=== PATIENT | male | born 1950 | race Caucasian/White ===

== ENCOUNTER 2017-10-04 18:10 | Observation (INO) | payer OTHER ==
[~2017-10-04] VITALS: Ht 167.6 cm; Wt 86.1 kg
[2017-10-04] MEDS ORDERED: MoRPHine SULFATE 4 MG/ML 1 ML CARP\\VIAL IV STA (18:26)
--- NOTE | 2017-10-04 18:31 | EMERGENCY ROOM VISIT NOTE ---
History Report prepared by Kimani: Rosina Cespedes Under the Supervision of: Dr. Tony Ndiaye M.D. First contact with patient: 18:18 Chief Complaint: CHEST PAIN Stated Complaint: CHEST PAIN History of Present Illness The patient is a 66 year old white male with a past medical history of CAD, HTN , and HLD who presents to the ED with a cc of chest pain beginning at around 1000 this morning. Positive dry cough. Negative fevers, chills, urinary symptoms , or history of blood clots in his legs or lungs. He describes his pain as constant and sharp in the center of his chest. The patient states that breathing in worsens his pain. His family notes that the patient began taking amoxicillin yesterday for a dental infection. His family also reports the patient has lost 20 pounds recently due to his poor dentition. He is currently taking aspirin and Plavix. He is also a current smoker. Source of History: patient, family Onset: around 1000 this morning Position: chest Quality: sharp Timing: constant Modifying Factors (Worsening): other (breathing in) Associated Symptoms: + cough (dry), No fevers, No chills, No urinary symptoms Note: Negative history of blood clots in his legs or lungs Review of Systems See HPI for pertinent positives and negatives. A total of ten systems were reviewed and were otherwise negative. Past Medical & Surgical Medical Problems: (1) CAD (coronary artery disease) (2) Chest pain (3) HLD (hyperlipidemia) (4) HTN (hypertension) (5) Hypoxia (6) Pulmonary congestion (7) Pulmonary nodule (8) Weight loss CAD (coronary artery disease) HLD (hyperlipidemia) HTN (hypertension) Family History No pertinent family history Social History Smoking Status: Current Every Day Smoker Smokeless Tobacco Use: Unknown Drug Use: none Housing Status: unknown Occupation Status: retired Current/Historical Medications Scheduled Amlodipine (Norvasc), 5 MG PO DAILY Amoxicillin (Amoxil), 875 MG PO BID Aspirin (Aspirin Ec), 325 MG PO DAILY Ezetimibe (Zetia), 10 MG PO DAILY Metoprolol Succ (Toprol Xl) (Toprol-Xl), 50 MG PO QPM Omeprazole (Prilosec), 20 MG PO DAILY Rosuvastatin Calcium (Crestor), 20 MG PO DAILY Allergies Coded Allergies: No Known Allergies (Unverified , 10/04/17) Physical Exam Vital Signs Date Time Temp Pulse Resp B/P (MAP) Pulse Ox O2 Delivery O2 Flow Rate FiO2 10/04/17 21:31 89 24 124/82 94 Nasal Cannula 2.0 10/04/17 20:22 75 23 110/70 96 Nasal Cannula 2.0 10/04/17 19:00 82 26 111/72 91 Nasal Cannula 2.0 10/04/17 18:42 89 20 139/84 93 Room Air 10/04/17 18:37 93 10/04/17 18:32 88 10/04/17 18:23 93 Room Air 10/04/17 18:16 36.7 88 18 131/76 96 Room Air Physical Exam GENERAL: Awake, alert, well-appearing, NAD. Appears older than stated age. Wearing glasses. HENT: Normocephalic, atraumatic. EYES: Normal conjunctiva. Sclera non-icteric. PERRL. No anisocoria. NECK: Supple. No nuchal rigidity. FROM. RESPIRATORY: CTAB, no rhonchi, wheezing, crackles. Shallow breaths. CARDIAC: RRR, no MRG ABDOMEN: Soft, NTND, BS+ MSK: No chest wall TTP, no LE edema. No reproducible chest pain. NEURO: GCS 15, CN 2-12 intact, moves all 4s on command SKIN: No rash or jaundice noted. Medical Decision & Procedures ER Provider Diagnostic Interpretation: Radiology results as stated below per my review and radiologist interpretation: CHEST ONE VIEW PORTABLE HISTORY: Atypical CHEST PAIN COMPARISON: None. FINDINGS: The heart is mildly enlarged. There is interstitial and vascular thickening suggestive of mild congestive change. No pleural effusions. No pneumothorax. No focal lung consolidations to suggest pneumonia. There is a vascular stent adjacent to the aortic knob. IMPRESSION: Cardiomegaly with mild congestive change. Electronically signed by: Sudheer Thomas M.D. 10/04/2017 7:39 PM Dictated Date/Time: 10/04/2017 7:37 PM CHEST CTA for PULMONARY ARTERIES CT DOSE: 474.64 mGy.cm HISTORY: Short of breath. Atypical chest pain. TECHNIQUE: Multiaxial CT images of the chest were performed following the intravenous administration of contrast to evaluate the pulmonary arteries. Maximal intensity projection images were also obtained. A dose lowering technique was utilized adhering to the principles of ALARA. COMPARISON STUDY: None. FINDINGS: Normal caliber thoracic aorta with no evidence for dissection. Proximal left subclavian artery stent is patent. No pleural or pericardial effusions. The heart is borderline enlarged. Question of a single linear filling defects seen within a right upper lobe segmental pulmonary artery on image 161. This could represent a small pulmonary embolus or may be technical. The remaining pulmonary arteries show no suspicious filling defects. The visualized liver, spleen, and adrenal glands are unremarkable. A few prominent right paratracheal lymph nodes with the largest measuring 1 cm in short axis diameter. No hilar lymphadenopathy. No fractures within the visualized osseous structures. No pneumothorax. The central airways are patent. Groundglass densities at the lung bases posteriorly are nonspecific but may be due to mild dependent change. Mild to moderate emphysema most pronounced within the right upper lobe. There is a 5 mm indeterminate pulmonary nodule within the superior segment of the right lower lobe in image 126. Punctate calcified granuloma within the right upper lobe on image 140. IMPRESSION: 1. A single linear filling defect seen within a right upper lobe segmental pulmonary artery. This could represent a small pulmonary embolus or may be technical. The remaining pulmonary arteries are patent. 2. Mild/moderate emphysema. 3. Groundglass densities at the lung bases posteriorly. This could be due to mild dependent change or possibly developing pneumonia. 4. A 5 mm indeterminate pulmonary nodule right lower lobe. Please refer to the chart below for recommended follow-up. Please refer to below summary of Fleischner criteria recommendations for follow-up of incidental CT nodules (Ann-Marie Mccartney, Guidelines for management of small pulmonary nodules detected on CT scans: A statement from the Fleischner Society, Radiology 237: [phone].) SOLID NODULES Solitary nodule size: <6 mm * Low risk patients: no follow-up needed * high risk patients: optional CT at 12 months Solitary nodule size: 6-8 mm * Low risk patients: follow-up at 6-12 months, then consider further follow-up at 18-24 months * high risk patients: initial follow-up CT at 6-12 months and then at 18-24 months if no change Solitary nodule size: >8 mm * either low or high risk patients - consider follow-up CT at 3 months, and/or CT-PET, and/or biopsy Multiple nodules size: <6 mm * Low risk patients: no routine follow-up * high risk patients: optional CT at 12 months Multiple nodules size: 6-8 mm * Low risk patients: follow-up at 3-6 months, then consider further follow-up at 18-24 months * high risk patients: follow-up at 3-6 months, then at 18-24 months if no change Multiple nodules size: >8 mm * Low risk patients: follow-up at 3-6 months, then consider further follow-up at 18-24 months * high risk patients: follow-up at 3-6 months, then at 18-24 months if no change Note: newly detected indeterminate nodule in persons 35 years of age or older. * Low risk patients: minimal or absent history of smoking and/or other known risk factors * high risk patients: history of smoking or of other known risk factors (e.g. first degree relative with lung cancer, or exposure to asbestos, radon, uranium) * if a nodule up to 8 mm is partly solid or is ground glass further follow-up is required after 24 months to exclude possible slow growing adenocarcinoma (MEG) SUBSOLID NODULES Solitary pure ground-glass nodule * nodule size <6 mm - no CT follow-up required * nodule size >=6 mm - follow-up CT at 6-12 months, then every 2 years until 5 years Solitary part-solid nodule * nodule size <6 mm - no CT follow-up required * nodule size >=6 mm - follow-up CT at 3-6 months. If unchanged, and solid component remains <6 mm, then annual follow-up for 5 years Multiple subsolid nodules * nodule size <6 mm - follow-up CT at 3-6 months, consider further follow-up at 2 and 4 years if stable * nodule size >=6 mm - follow-up CT at 3-6 months, subsequent management based on the most suspicious nodule(s) Electronically signed by: Sudheer Thomas M.D. 10/04/2017 8:07 PM Dictated Date/Time: 10/04/2017 7:55 PM Laboratory Results 10/04/17 18:30 Red Blood Count 5.51, Mean Corpuscular Volume 91.5, Mean Corpuscular Hemoglobin 34.3, Mean Corpuscular Hemoglobin Concent 37.5, Mean Platelet Volume 9.5, Neutrophils (%) (Auto) 78.2, Lymphocytes (%) (Auto) 10.0, Monocytes (%) (Auto) 9.4, Eosinophils (%) (Auto) 1.7, Basophils (%) (Auto) 0.4, Neutrophils # (Auto) 11.75, Lymphocytes # (Auto) 1.51, Monocytes # (Auto) 1.42, Eosinophils # (Auto) 0.25, Basophils # (Auto) 0.06 10/04/17 18:30 Test 10/04/17 18:30 10/04/17 18:38 10/04/17 18:42 White Blood Count 15.03 K/uL (4.8-10.8) Red Blood Count 5.51 M/uL (4.7-6.1) Hemoglobin 18.9 g/dL (14.0-18.0) Hematocrit 50.4 % (42-52) Mean Corpuscular Volume 91.5 fL (80-100) Mean Corpuscular Hemoglobin 34.3 pg (25-34) Mean Corpuscular Hemoglobin Concent 37.5 g/dl (32-36) Platelet Count 162 K/uL (130-400) Mean Platelet Volume 9.5 fL (7.4-10.4) Neutrophils (%) (Auto) 78.2 % Lymphocytes (%) (Auto) 10.0 % Monocytes (%) (Auto) 9.4 % Eosinophils (%) (Auto) 1.7 % Basophils (%) (Auto) 0.4 % Neutrophils # (Auto) 11.75 K/uL (1.4-6.5) Lymphocytes # (Auto) 1.51 K/uL (1.2-3.4) Monocytes # (Auto) 1.42 K/uL (0.11-0.59) Eosinophils # (Auto) 0.25 K/uL (0-0.5) Basophils # (Auto) 0.06 K/uL (0-0.2) RDW Standard Deviation 44.5 fL (36.4-46.3) RDW Coefficient of Variation 13.3 % (11.5-14.5) Immature Granulocyte % (Auto) 0.3 % Immature Granulocyte # (Auto) 0.04 K/uL (0.00-0.02) Prothrombin Time 10.5 SECONDS (9.0-12.0) Prothromb Time International Ratio 1.0 (0.9-1.1) Activated Partial Thromboplast Time 28.6 SECONDS (21.0-31.0) Partial Thromboplastin Ratio 1.1 Est Creatinine Clear Calc Drug Dose 63.8 ml/min Estimated GFR () 75.4 Estimated GFR (Non- 65.0 BUN/Creatinine Ratio 13.7 (10-20) Calcium Level 9.3 mg/dl (8.5-10.1) Phosphorus Level 2.8 mg/dl (2.5-4.9) Magnesium Level 2.1 mg/dl (1.8-2.4) Pro-B-Type Natriuretic Peptide 249 pg/ml (0-900) Procalcitonin < 0.05 ng/ml (0-0.5) Bedside Troponin I < 0.030 ng/ml (0-0.045) Bedside Hemoglobin 18.7 g/dl (14.0-18.0) Bedside Hematocrit 55 % (42-52) Bedside Sodium 137 mEq/L (135-144) Bedside Potassium 4.1 mEq/L (3.3-5.0) Bedside Chloride 99 mEq/L (101-112) Bedside Total CO2 26 mEq/l (24-31) Anion Gap 17.0 mmol/L (16-25) Bedside Blood Urea Nitrogen 18 mg/dl (7-18) Bedside Creatinine 1.1 mg/dl (0.6-1.3) Bedside Glucose (other) 107 mg/dl (70-99) Bedside Ionized Calcium (Joshua) 1.20 mmol/l (1.12-1.32) Laboratory results reviewed by me Medications Administered Medications (Trade) Dose Ordered Sig/Anay Route Start Time Stop Time Status Last Admin Dose Admin Nitroglycerin (Nitrostat Tab) 0.4 mg Q5M PRN SL 10/04/17 18:30 10/04/17 22:50 DC 10/04/17 22:19 0.4 MG Morphine Sulfate (MoRPHine SULFATE INJ) 4 mg NOW STAT IV 10/04/17 18:26 10/04/17 18:29 DC 10/04/17 18:43 4 MG Ceftriaxone Sodium (Rocephin Inj) 1 gm NOW STAT IV 10/04/17 20:11 10/04/17 20:13 DC 10/04/17 20:20 1 GM Azithromycin (Zithromax Tab) 500 mg NOW ONCE PO 10/04/17 20:15 10/04/17 20:16 DC 10/04/17 20:19 500 MG Morphine Sulfate (MoRPHine SULFATE INJ) 2 mg Q30M PRN IV 10/04/17 21:45 10/05/17 00:58 DC 10/05/17 00:04 2 MG ECG Per My Interpretation Indication: chest pain Rate (beats per minute): 86 Rhythm: normal sinus Findings: other (normal intervals, normal axis, prominent T waves V2 through V6 , subtle elevations in II and AVF ) Change: Repeat EKG shows normal sinus, rate of 84, normal intervals, normal axis, pronounced T waves V2 through V6, subtle elevations may be improved ED Course 1819: The patient was evaluated in room B2. A complete history and physical exam was performed. 1825: Ordered Morphine Sulfate 4 mg IV 1829: Ordered Nitroglycerin 0.4 mg SL 183: I discussed the patients case with Dr. Hakeem Britton, Cardiology. I discussed the patients case with Dr. Hakeem Britton, Cardiology. His recommendation was to text the EKG to him at this time. 1840: I discussed the patient's case again with Dr. Hakeem Britton, Cardiology. He agrees there may be some subtle changes. He wants to wait for troponin. If troponin is positive and the patient is not pain free after medications, a heart alert should be called. 0: I tried to ultrasound the patient at this time. His chest pain has not improved. 2011: Ordered Rocephin Inj 1 gm IV 2013: I reevaluated the patient. Discussed results and and the treatment plan with him. He verbalized understanding and agreement. 2015: Ordered Zithromax Tab 500 mg PO 2019: Discussed the patient's case with Renny Nassar, [facility] Hospitalist. The patient will be evaluated for further treatment and disposition. Medical Decision The patient is a 66 year old white male with a past medical history of CAD, HTN , and HLD who presents to the ED with a cc of chest pain beginning at around 1000 this morning. Positive dry cough. Negative fevers, chills, urinary symptoms , or history of blood clots in his legs or lungs. Prior records/ancillary studies reviewed. Triage Nursing notes reviewed. Additional history obtained from the patient's family. The patient's history was concerning for chest pain. Differential diagnosis: Etiologies such as cardiac ischemia, aortic dissection, pulmonary embolism, pneumonia, pneumothorax, musculoskeletal, infections, pericarditis, myocarditis , esophageal rupture, gastrointestinal, as well as others were entertained. Patient was seen and evaluated the bedside. Patient does have a significant history for known CAD status post PCI and PVD status post stent in the leg. Patient does take full dose aspirin as well as Plavix daily. Patient noted chest pain beginning around 10 AM this morning. Patient denies any shortness of breath. He characterizes it as sharp and nonradiating. The patient has had an unintentional weight loss of approximately 20 pounds over the last several months. This is been due to his poor dentition and decreased p.o. intake. Patient is a positive smoker and does have hypertension and hyperlipidemia. Patient did have an EKG completed the bedside. Unsure as to whether he has benign early re-pole versus hyperacute T waves in his anterior and lateral leads. He does have questionable subtle elevations in 2 and aVF. I did speak with the on-call table top tile setter who agreed that the changes are subtle and cannot rule it in or out at this time. Recommended following up on the troponin which was running and seeing if the patient has improvement of chest pain with medications. If the troponin is positive for the patient is not chest pain-free we should call a heart alert. Upon reassessment the patient admittedly was not feeling all that improved over the patient's troponin was negative and given the patient's shortness of breath along with sharp pleuritic chest pain I thought it gomez to obtain a CT PE protocol. Patient's white blood cell count was 15,000. This could be due to the fact that he was being treated for dental infection or could be reimbursement representative of a possible chest infection. Patient's repeat EKG was fairly unchanged. Patient CT p.o. E protocol showed a questionable PE versus atelectasis versus pneumonia. Given the patient's elevated white blood cell count mild hypoxia as his O2 saturation was in the low 90s I believe this may be related to a pneumonia. The patient was given Rocephin and azithromycin. Patient's symptoms could also be multifactorial as the patient does have emphysematous changes on his CT which may contribute to his relative hypoxia. I did discuss all of the potential findings and concerns with the hospitalist. Patient did already take a full aspirin prior to arrival. Admitted to the medicine service. Medication Reconcilliation Current Medication List: was personally reviewed by me Blood Pressure Screening Patient's blood pressure: Normal blood pressure Blood pressure disposition: Did not require urgent referral Consults Time Called: 1830 Consulting Physician: Dr. Hakeem Britton, Cardiology Returned Call: 1833 I discussed the patients case with Dr. Hakeem Britton, Cardiology. His recommendation was to text the EKG to him at this time. Additional Consults: Time Called: 1834 Consulted Physician: Dr. Hakeem Britton, Cardiology Returned Call: 1840 Additional Comments: I discussed the patient's case again with Dr. Hakeem Britton Cardiology. He agrees there may be some subtle changes. He wants to wait for troponin. If troponin is positive and the patient is not pain free after medications, a heart alert should be called. Time Called: 2012 Consulted Physician: Renny Nassar, [facility] Hospitalist Returned Call: 2018 Additional Comments: Discussed the patient's case with Renny Nassar, [facility] Hospitalist. The patient will be evaluated for further treatment and disposition. Impression Primary Impression: Pneumonia Additional Impressions: Encounter for smoking cessation counseling COPD (chronic obstructive pulmonary disease) Chest pain Scribe Attestation The scribe's documentation has been prepared under my direction and personally reviewed by me in its entirety. I confirm that the note above accurately reflects all work, treatment, procedures, and medical decision making performed by me. Departure Information Dispostion Being Evaluated By Hospitalist (Renny Nassar, [facility] Hospitalist) Referrals No Doctor, Assigned (PCP) Patient Instructions [facility] Problem Qualifiers Primary Impression: Pneumonia Pneumonia type: due to unspecified organism Laterality: unspecified laterality Lung location: unspecified part of lung Qualified Codes: J18.9 - Pneumonia, unspecified organism Additional Impressions: COPD (chronic obstructive pulmonary disease) COPD type: emphysema Emphysema type: unspecified Qualified Codes: J43.9 - Emphysema, unspecified Chest pain Chest pain type: unspecified Qualified Codes: R07.9 - Chest pain, unspecified
[2017-10-04] MEDS: NITROGLYCERIN 0.4 MG SL PER TAB CHARGE SL PRN ×3 (18:43→22:19)
[2017-10-04 18:48] LABS: BASO % 0.4 %; BASO ABS # 0.06 K/uL (0-0.2); EOS % 1.7 %; EOS ABS # 0.25 K/uL (0-0.5); HEMATOCRIT 50.4 % (42-52); HEMOGLOBIN 18.9 g/dL (14.0-18.0); IG# 0.04 K/uL (0.00-0.02); LYMPH ABS # 1.51 K/uL (1.2-3.4); MEAN CELL VOLUME 91.5 fL (80-100); MEAN CORPUSCULAR HEMOGLOBIN 34.3 pg (25-34); MEAN CORPUSCULAR HGB CONC 37.5 g/dl (32-36); MEAN PLATELET VOLUME 9.5 fL (7.4-10.4); MONO % 9.4 %; MONO ABS # 1.42 K/uL (0.11-0.59); NEUT % 78.2 %; NEUT ABS # 11.75 K/uL (1.4-6.5); PLATELET COUNT 162 K/uL (130-400); RED CELL DISTRIBUTION WIDTH CV 13.3 % (11.5-14.5); RED CELL DISTRIBUTION WIDTH SD 44.5 fL (36.4-46.3); WHITE BLOOD COUNT 15.03 K/uL (4.8-10.8)
[2017-10-04 19:00] LABS: ISTAT CREATININE 1.1 mg/dl (0.6-1.3); ISTAT IONIZED CALCIUM 1.2 mmol/l (1.12-1.32); ISTAT POTASSIUM 4.1 mEq/L (3.3-5.0)
[2017-10-04 19:02] LABS: BLOOD UREA NITROGEN 16 mg/dl (7-18); CALCIUM 9.3 mg/dl (8.5-10.1); CARBON DIOXIDE 28 mmol/L (21-32); CREATININE 1.15 mg/dl (0.60-1.40); GLUCOSE 103 mg/dl (70-99); POTASSIUM 4.1 mmol/L (3.5-5.1); SODIUM 135 mmol/L (136-145)
[2017-10-04 19:04] LABS: PTT PATIENT 28.6 SECONDS (21.0-31.0)
[2017-10-04 19:07] LABS: PHOSPHORUS 2.8 mg/dl (2.5-4.9)
[2017-10-04] MEDS ORDERED: OPTIRAY 320 IV PRN (19:30)
[2017-10-04] MEDS ORDERED: AMOX875T3 PO (19:33)
[2017-10-04] MEDS ORDERED: ROSU20TA PO (19:33)
[2017-10-04] MEDS ORDERED: PRLSR20 PO (19:33)
[2017-10-04] MEDS ORDERED: ASPI325T39 PO (19:33)
[2017-10-04] MEDS ORDERED: METO50TA8 PO (19:33)
[2017-10-04] MEDS ORDERED: EZET10TA63 PO (19:33)
[2017-10-04] MEDS ORDERED: AMLO-110 PO (19:33)
--- NOTE | 2017-10-04 19:40 | DIAGNOSTIC IMAGING REPORT ---
CHEST ONE VIEW PORTABLE HISTORY: Atypical CHEST PAIN COMPARISON: None. FINDINGS: The heart is mildly enlarged. There is interstitial and vascular thickening suggestive of mild congestive change. No pleural effusions. No pneumothorax. No focal lung consolidations to suggest pneumonia. There is a vascular stent adjacent to the aortic knob. IMPRESSION: Cardiomegaly with mild congestive change. Electronically signed by: Sudheer Thomas M.D. 10/04/2017 7:39 PM Dictated Date/Time: 10/04/2017 7:37 PM
--- NOTE | 2017-10-04 20:08 | DIAGNOSTIC IMAGING REPORT ---
CHEST CTA for PULMONARY ARTERIES CT DOSE: 474.64 mGy.cm HISTORY: Short of breath. Atypical chest pain. TECHNIQUE: Multiaxial CT images of the chest were performed following the intravenous administration of contrast to evaluate the pulmonary arteries. Maximal intensity projection images were also obtained. A dose lowering technique was utilized adhering to the principles of ALARA. COMPARISON STUDY: None. FINDINGS: Normal caliber thoracic aorta with no evidence for dissection. Proximal left subclavian artery stent is patent. No pleural or pericardial effusions. The heart is borderline enlarged. Question of a single linear filling defects seen within a right upper lobe segmental pulmonary artery on image 161. This could represent a small pulmonary embolus or may be technical. The remaining pulmonary arteries show no suspicious filling defects. The visualized liver, spleen, and adrenal glands are unremarkable. A few prominent right paratracheal lymph nodes with the largest measuring 1 cm in short axis diameter. No hilar lymphadenopathy. No fractures within the visualized osseous structures. No pneumothorax. The central airways are patent. Groundglass densities at the lung bases posteriorly are nonspecific but may be due to mild dependent change. Mild to moderate emphysema most pronounced within the right upper lobe. There is a 5 mm indeterminate pulmonary nodule within the superior segment of the right lower lobe in image 126. Punctate calcified granuloma within the right upper lobe on image 140. IMPRESSION: 1. A single linear filling defect seen within a right upper lobe segmental pulmonary artery. This could represent a small pulmonary embolus or may be technical. The remaining pulmonary arteries are patent. 2. Mild/moderate emphysema. 3. Groundglass densities at the lung bases posteriorly. This could be due to mild dependent change or possibly developing pneumonia. 4. A 5 mm indeterminate pulmonary nodule right lower lobe. Please refer to the chart below for recommended follow-up. Please refer to below summary of Fleischner criteria recommendations for follow-up of incidental CT nodules (Ann-Marie Mccartney, Guidelines for management of small pulmonary nodules detected on CT scans: A statement from the Fleischner Society, Radiology 237: [phone].) SOLID NODULES Solitary nodule size: <6 mm * Low risk patients: no follow-up needed * high risk patients: optional CT at 12 months Solitary nodule size: 6-8 mm * Low risk patients: follow-up at 6-12 months, then consider further follow-up at 18-24 months * high risk patients: initial follow-up CT at 6-12 months and then at 18-24 months if no change Solitary nodule size: >8 mm * either low or high risk patients - consider follow-up CT at 3 months, and/or CT-PET, and/or biopsy Multiple nodules size: <6 mm * Low risk patients: no routine follow-up * high risk patients: optional CT at 12 months Multiple nodules size: 6-8 mm * Low risk patients: follow-up at 3-6 months, then consider further follow-up at 18-24 months * high risk patients: follow-up at 3-6 months, then at 18-24 months if no change Multiple nodules size: >8 mm * Low risk patients: follow-up at 3-6 months, then consider further follow-up at 18-24 months * high risk patients: follow-up at 3-6 months, then at 18-24 months if no change Note: newly detected indeterminate nodule in persons 35 years of age or older. * Low risk patients: minimal or absent history of smoking and/or other known risk factors * high risk patients: history of smoking or of other known risk factors (e.g. first degree relative with lung cancer, or exposure to asbestos, radon, uranium) * if a nodule up to 8 mm is partly solid or is ground glass further follow-up is required after 24 months to exclude possible slow growing adenocarcinoma (MEG) SUBSOLID NODULES Solitary pure ground-glass nodule * nodule size <6 mm - no CT follow-up required * nodule size >=6 mm - follow-up CT at 6-12 months, then every 2 years until 5 years Solitary part-solid nodule * nodule size <6 mm - no CT follow-up required * nodule size >=6 mm - follow-up CT at 3-6 months. If unchanged, and solid component remains <6 mm, then annual follow-up for 5 years Multiple subsolid nodules * nodule size <6 mm - follow-up CT at 3-6 months, consider further follow-up at 2 and 4 years if stable * nodule size >=6 mm - follow-up CT at 3-6 months, subsequent management based on the most suspicious nodule(s) Electronically signed by: Sudheer Thomas M.D. 10/04/2017 8:07 PM Dictated Date/Time: 10/04/2017 7:55 PM
[2017-10-04] MEDS ORDERED: CEFTRIAXONE SOD INJ 1 GM ADDVIAL IV STA (20:11)
[2017-10-04] MEDS ORDERED: AZITHROMYCIN 250 MG TAB PO ONE (20:15)
[2017-10-04] MEDS ORDERED: NITROGLYCERIN 0.4 MG SL PER TAB CHARGE SL PRN (21:45)
[2017-10-04] MEDS ORDERED: ALUMINUM/MAGNESIUM/SIMETH (MAALOX MAX) 30 ML UDC PO PRN (21:45)
[2017-10-04] MEDS ORDERED: ONDANSETRON INJ 2 MG/ML 2 ML VIAL IV PRN (21:45)
[2017-10-04] MEDS ORDERED: MAGNESIUM HYDROXIDE SUSP 30 ML UDC PO PRN (21:45)
[2017-10-04] MEDS ORDERED: ACETAMINOPHEN 325 MG TAB PO PRN (21:45)
--- NOTE | 2017-10-04 22:07 | History and Physical ---
History & Physical Date & Time of Service: October 04, 2017 at 21:40 Chief Complaint: Chest Pain Primary Care Physician: No Doctor, Assigned History of Present Illness Source: patient, family 66 year old male with PMHx significant for significant CAD s/p PCI, PVD s/p left femoral stent, h/o left subclavian stenosis s/p stent, HTN, HLD, chronic ongoing tobacco abuse with 100 pack year history presents to the ER with acute onset CP described as a sharp pain across his chest bilaterally with radiation to the centre of his back, but not the neck/jaw/arm. Associated with pleurisy, but no nausea or diaphoresis. Symptoms occurred while working in the garage, although he denies significant exertion or heavy lifting. Chest symptoms dulled and subsided but have continued to recur through the day. As the day progressed , patient has felt increasingly dyspneic, so family brought him in for evaluation. Patient ambulates independently at baseline and denies changes in exercise tolerance or difficulty ambulating up a flight of stairs. He has had left jaw pain x 1 week, and recently saw his PCP in [place] yesterday who prescribed amoxicillin 875mg BID for dental abscess and a recommendation for patient to make a dental appointment. Patient has taken 3 doses of medication to date and denies fevers/chills/sweats. He is aware he has poor dentition, and should have seen a dentist sooner. Because of his tooth pain, patient has poor PO intake, but actually, family informs us that patient has had a 20lb weight loss over the last 6 months, without trying. Patient denies recent procedure/ immobility, recent travel, or chest trauma. He has had CT chest in the past, but denies annual screening low dose CT. Family was never told about any lung nodules in the past. He has never had a screening colonoscopy, having declined/' avoided' them. He has had spirometry testing in the past, but was never diagnosed as COPD. His PCP had prescribed an inhaler in the past, but the patient was non-compliant as it worsened his cough. Patient denies recent use of antibiotics/steroids for lung issues, stating he sees his PCP annually (ie. rarely), last seen 6 months ago. He has a die barber who does scheduled echo/ carotid Doppler/ALLI measurements, per patient, and no recent intervention has been required. Patient otherwise denies headaches, palpitations, abdominal pain or nausea/ vomiting, lower extremity swelling, rashes issues with voiding or stooling. ROS is unremarkable except as noted above. In the ER, EKG showed subtle changes but no heart alert was called after discussion with die barber Dr. Britton. Patient received morphine, NGT, Rocephin and Zithromax. Imaging ruled out dissection, but did show right upper lobe segmental artery PE, emphysema, pulmonary nodule and ?pneumonia. Recurrent chest pain was treated with morphine and NGT. Repeat EKG was unchanged. Past Medical/Surgical History Medical Problems: (1) CAD (coronary artery disease) (2) HLD (hyperlipidemia) (3) HTN (hypertension) Family History No pertinent family history Non-contributory Social History Smoking Status: Current Every Day Smoker Smokeless Tobacco Use: No Alcohol Use: occasionally Drug Use: none Marital Status: Housing status: lives with family Occupational Status: retired Immunizations History of Influenza Vaccine: Unknown History of Tetanus Vaccine?: Unknown History of Pneumococcal: Unknown History of Hepatitis B Vaccine: Unknown Allergies Coded Allergies: No Known Allergies (Unverified , 10/04/17) Home Medications Scheduled Amlodipine (Norvasc), 5 MG PO DAILY Amoxicillin (Amoxil), 875 MG PO BID Aspirin (Aspirin Ec), 325 MG PO DAILY Ezetimibe (Zetia), 10 MG PO DAILY Metoprolol Succ (Toprol Xl) (Toprol-Xl), 50 MG PO QPM Omeprazole (Prilosec), 20 MG PO DAILY Rosuvastatin Calcium (Crestor), 20 MG PO DAILY Physical Exam Vital Signs Date Time Temp Pulse Resp B/P (MAP) Pulse Ox O2 Delivery O2 Flow Rate FiO2 10/04/17 20:22 75 23 110/70 96 Nasal Cannula 2.0 10/04/17 19:00 82 26 111/72 91 Nasal Cannula 2.0 10/04/17 18:42 89 20 139/84 93 Room Air 10/04/17 18:37 93 10/04/17 18:32 88 10/04/17 18:23 93 Room Air 10/04/17 18:16 36.7 88 18 131/76 96 Room Air General Appearance: WD/WN, + pertinent finding (nasal cannula in situ with supplemental 2L O2) Head: normocephalic, atraumatic Eyes: normal inspection, sclerae normal ENT: hearing grossly normal, pharynx normal, + pertinent finding (vertical ear creases, poor dentition, tacky mucous membranes) Neck: supple, no adenopathy, no JVD Respiratory/Chest: no respiratory distress, no accessory muscle use, + decreased breath sounds, + crackles (bibasilar), + wheezing (appreciated anteriorly) Cardiovascular: regular rate, rhythm, normal peripheral pulses Abdomen/GI: normal bowel sounds, non tender, soft Back: normal inspection, no CVA tenderness Extremities/Musculoskelatal: no calf tenderness, no pedal edema, + pertinent finding (Digital clubbing) Neurologic/Psych: alert, normal mood/affect, oriented x 3 Skin: warm/dry, no rash, + pertinent finding (Evidence of hemosiderin deposits across both arms. Bruising attributed to bumps while on dual anti-platelets, dermatofibroma on left upper back. Large mole hanging off back of right ear.) Diagnostics Laboratory Results Results Past 24 Hours Test 10/04/17 18:30 10/04/17 18:38 10/04/17 18:42 Range/Units White Blood Count 15.03 4.8-10.8 K/uL Red Blood Count 5.51 4.7-6.1 M/uL Hemoglobin 18.9 14.0-18.0 g/dL Hematocrit 50.4 42-52 % Mean Corpuscular Volume 91.5 80-100 fL Mean Corpuscular Hemoglobin 34.3 25-34 pg Mean Corpuscular Hemoglobin Concent 37.5 32-36 g/dl Platelet Count 162 130-400 K/uL Mean Platelet Volume 9.5 7.4-10.4 fL Neutrophils (%) (Auto) 78.2 % Lymphocytes (%) (Auto) 10.0 % Monocytes (%) (Auto) 9.4 % Eosinophils (%) (Auto) 1.7 % Basophils (%) (Auto) 0.4 % Neutrophils # (Auto) 11.75 1.4-6.5 K/uL Lymphocytes # (Auto) 1.51 1.2-3.4 K/uL Monocytes # (Auto) 1.42 0.11-0.59 K/uL Eosinophils # (Auto) 0.25 0-0.5 K/uL Basophils # (Auto) 0.06 0-0.2 K/uL RDW Standard Deviation 44.5 36.4-46.3 fL RDW Coefficient of Variation 13.3 11.5-14.5 % Immature Granulocyte % (Auto) 0.3 % Immature Granulocyte # (Auto) 0.04 0.00-0.02 K/uL Prothrombin Time 10.5 9.0-12.0 SECONDS Prothromb Time International Ratio 1.0 0.9-1.1 Activated Partial Thromboplast Time 28.6 21.0-31.0 SECONDS Partial Thromboplastin Ratio 1.1 Sodium Level 135 136-145 mmol/L Potassium Level 4.1 3.5-5.1 mmol/L Chloride Level 101 98-107 mmol/L Carbon Dioxide Level 28 21-32 mmol/L Anion Gap 6.0 17.0 16-25 mmol/L Blood Urea Nitrogen 16 7-18 mg/dl Creatinine 1.15 0.60-1.40 mg/dl Est Creatinine Clear Calc Drug Dose 63.8 ml/min Estimated GFR () 75.4 Estimated GFR (Non- 65.0 BUN/Creatinine Ratio 13.7 10-20 Random Glucose 103 70-99 mg/dl Calcium Level 9.3 8.5-10.1 mg/dl Phosphorus Level 2.8 2.5-4.9 mg/dl Magnesium Level 2.1 1.8-2.4 mg/dl Troponin I < 0.015 0-0.045 ng/ml Pro-B-Type Natriuretic Peptide 249 0-900 pg/ml Bedside Troponin I < 0.030 0-0.045 ng/ml Bedside Hemoglobin 18.7 14.0-18.0 g/dl Bedside Hematocrit 55 42-52 % Bedside Sodium 137 135-144 mEq/L Bedside Potassium 4.1 3.3-5.0 mEq/L Bedside Chloride 99 101-112 mEq/L Bedside Total CO2 26 24-31 mEq/l Bedside Blood Urea Nitrogen 18 7-18 mg/dl Bedside Creatinine 1.1 0.6-1.3 mg/dl Bedside Glucose (other) 107 70-99 mg/dl Bedside Ionized Calcium (Joshua) 1.20 1.12-1.32 mmol/l Diagnostic Radiology CHEST ONE VIEW PORTABLE HISTORY: Atypical CHEST PAIN COMPARISON: None. FINDINGS: The heart is mildly enlarged. There is interstitial and vascular thickening suggestive of mild congestive change. No pleural effusions. No pneumothorax. No focal lung consolidations to suggest pneumonia. There is a vascular stent adjacent to the aortic knob. IMPRESSION: Cardiomegaly with mild congestive change. CHEST CTA for PULMONARY ARTERIES CT DOSE: 474.64 mGy.cm HISTORY: Short of breath. Atypical chest pain. TECHNIQUE: Multiaxial CT images of the chest were performed following the intravenous administration of contrast to evaluate the pulmonary arteries. Maximal intensity projection images were also obtained. A dose lowering technique was utilized adhering to the principles of ALARA. COMPARISON STUDY: None. FINDINGS: Normal caliber thoracic aorta with no evidence for dissection. Proximal left subclavian artery stent is patent. No pleural or pericardial effusions. The heart is borderline enlarged. Question of a single linear filling defects seen within a right upper lobe segmental pulmonary artery on image 161. This could represent a small pulmonary embolus or may be technical. The remaining pulmonary arteries show no suspicious filling defects. The visualized liver, spleen, and adrenal glands are unremarkable. A few prominent right paratracheal lymph nodes with the largest measuring 1 cm in short axis diameter. No hilar lymphadenopathy. No fractures within the visualized osseous structures. No pneumothorax. The central airways are patent. Groundglass densities at the lung bases posteriorly are nonspecific but may be due to mild dependent change. Mild to moderate emphysema most pronounced within the right upper lobe. There is a 5 mm indeterminate pulmonary nodule within the superior segment of the right lower lobe in image 126. Punctate calcified granuloma within the right upper lobe on image 140. IMPRESSION: 1. A single linear filling defect seen within a right upper lobe segmental pulmonary artery. This could represent a small pulmonary embolus or may be technical. The remaining pulmonary arteries are patent. 2. Mild/moderate emphysema. 3. Groundglass densities at the lung bases posteriorly. This could be due to mild dependent change or possibly developing pneumonia. 4. A 5 mm indeterminate pulmonary nodule right lower lobe. Please refer to the chart below for recommended follow-up. Impression Assessment and Plan 66 year old male with PMHx significant for significant CAD s/p PCI, PVD s/p left femoral stent, h/o left subclavian stenosis s/p stent, HTN, HLD, chronic ongoing tobacco abuse with 100 pack year history presents to the ER with acute onset CP with hypoxia, pleurisy and history of weight loss. In the ER, EKG showed subtle changes but no heart alert was called after discussion with die barber Dr. Britton. Patient received morphine, NGT, Rocephin and Zithromax. Imaging ruled out dissection, but did show right upper lobe segmental artery PE , emphysema, pulmonary nodule and ?pneumonia. Recurrent chest pain was treated with morphine and NGT. Repeat EKG was unchanged. Chest pain on bkgd CAD/PVD/HTN/HLD - CT chest negative for dissection, pleural or pericardial effusions. - Continue home meds: aspirin 325mg daily, clopidogrel, metoprolol, amlodipine, ezetimibe, rosuvastatin - Scheduled ibuprofen for pleurisy - Cardiology consulted - Trend serial troponin, check HbA1c and fasting lipids in AM - Echo ordered - PRN NGT and morphine for chest pain - EKG PRN chest pain Acute hypoxic respiratory failure - secondary to pneumonia vs. PE vs. congestion - Supplemental O2 via protocol, keep sats >92% - not on home O2 - Treat underlying cause, see below - PT/OT evals ordered Pulmonary embolism - risk factors: vasculopath, ?malignancy (see below) - CT chest: A single linear filling defect seen within a right upper lobe segmental pulmonary artery. This could represent a small pulmonary embolus or may be technical. The remaining pulmonary arteries are patent. - Heparin drip initiated - Doppler U/S of lower extremities ordered ?Pneumonia - CT chest: ground glass densities at the lung bases posteriorly. This could be due to mild dependent change or possibly developing pneumonia. Mild/moderate emphysema also noted. - Empiric treatment with levofloxacin - Procalcitonin ordered - Duonebs and incentive spirometry ordered ?Congestion - As noted on CXR, but not on CT chest. BNP negative. Patient appears euvolemic/ slightly dry clinically - Consider diuresis if hypoxia not improved (or worsened) despite treatment of pneumonia Pulmonary nodule - CT chest: A 5 mm indeterminate pulmonary nodule right lower lobe - Concerning factors: heavy smoker, significant acute weight loss, new PE, no annual screening, and no known history of nodule previously on old CT per family - Consider consulting cardiothoracic +/- oncology Dental infection/?abscess - On amoxicillin as out patient, will be covered by levofloxacin, as above - If pneumonia ruled out, would consider restarting Augmentin, and recommend outpatient dental appointment Polycythemia - likely secondary to chronic hypoxia from tobacco abuse causing pulmonary disease vs. dehydration - IVF bolus for dehydration - Trend CBC GERD - PO pantoprazole - Home omeprazole should be 12 hours apart from clopidogrel Tobacco abuse - encouraged cessation - Nicotine patch ordered VTE ppx - Heparin drip, as above - SCDs Code: FULL Resuscitation Status Full VTE Prophylaxis Will order VTE Prophylaxis: Yes Resident Tracking Resident Involvement: Resident Care Provided Care Provided: Adult Hospital Medicine
[2017-10-04] MEDS ORDERED: HEPARIN 25000 UNIT/500 ML D5W ONE (22:15)
[2017-10-04] MEDS ORDERED: MoRPHine SULFATE 2 MG/ML CARP ONE (22:23)
[2017-10-04] MEDS: MoRPHine SULFATE 4 MG/ML 1 ML CARP\\VIAL IV PRN (22:25)
[2017-10-04] MEDS ORDERED: HEPARIN 25,000 UNIT/500ML D5W 500 ML IV SCH (22:30)
[2017-10-04 22:40] VITALS: BP 120/71; PULSE 80; TEMP 36.9; O2SAT 97; Ht 167.6 cm; Wt 86.1 kg
[2017-10-04] MEDS ORDERED: SODIUM CHLORIDE 0.9% 500ML 500 ML IV SCH (23:00)
[2017-10-04] MEDS ORDERED: IV FLUIDS COMPLETED PRN (23:15)
[2017-10-04] MEDS: NITROGLYCERIN 2% OINTMENT 30GM TUBE EXT SCH (23:19)
[2017-10-04] MEDS ORDERED: ACETAMINOPHEN 500 MG TAB PO ONE (23:30)
[2017-10-04] MEDS ORDERED: LEVOFLOXACIN / D5W 750 MG in PREMIXED IN D5W 150 ML IV SCH (23:45)
[2017-10-05] VITALS (13 sets, daily range): BP systolic 102–104; BP diastolic 64–67; PULSE 67–86; TEMP 36.8–37; O2SAT 94–97
[2017-10-05] MEDS: MoRPHine SULFATE 4 MG/ML 1 ML CARP\\VIAL IV PRN (00:04)
[2017-10-05] MEDS ORDERED: IBUPROFEN 600 MG TAB PO ONE (00:55)
[2017-10-05 05:55] LABS: PTT PATIENT 51.2 SECONDS (21.0-31.0)
[2017-10-05 05:56] LABS: BASO % 0.7 %; BASO ABS # 0.07 K/uL (0-0.2); EOS % 2.6 %; EOS ABS # 0.25 K/uL (0-0.5); HEMATOCRIT 42.5 % (42-52); HEMOGLOBIN 15.5 g/dL (14.0-18.0); IG# 0.02 K/uL (0.00-0.02); LYMPH % 16.7 %; LYMPH ABS # 1.61 K/uL (1.2-3.4); MEAN CORPUSCULAR HEMOGLOBIN 33.2 pg (25-34); MEAN CORPUSCULAR HGB CONC 36.5 g/dl (32-36); MEAN PLATELET VOLUME 9.3 fL (7.4-10.4); MONO % 13.3 %; MONO ABS # 1.28 K/uL (0.11-0.59); NEUT % 66.5 %; NEUT ABS # 6.39 K/uL (1.4-6.5); PLATELET COUNT 142 K/uL (130-400); RED CELL DISTRIBUTION WIDTH CV 13.4 % (11.5-14.5); RED CELL DISTRIBUTION WIDTH SD 44.4 fL (36.4-46.3); WHITE BLOOD COUNT 9.62 K/uL (4.8-10.8)
[2017-10-05 06:00] LABS: ALBUMIN 2.8 gm/dl (3.4-5.0); CALCIUM 8.1 mg/dl (8.5-10.1); CREATININE 0.98 mg/dl (0.60-1.40); POTASSIUM 3.8 mmol/L (3.5-5.1)
[2017-10-05] MEDS ORDERED: ACETAMINOPHEN 500 MG TAB PO SCH (06:00)
[2017-10-05] MEDS: NITROGLYCERIN 2% OINTMENT 30GM TUBE EXT SCH ×2 (06:00→12:00)
[2017-10-05 06:03] LABS: TOTAL PROTEIN 6.2 gm/dl (6.4-8.2)
[2017-10-05 06:34] LABS: HEMOGLOBIN A1C 5.6 % (4.5-5.6)
[2017-10-05] MEDS: ALBUT/IPRATROP 3MG/0.5MG NEB 3 ML VIAL INH SCH ×3 (07:09→14:45)
[2017-10-05] MEDS: IBUPROFEN 600 MG TAB PO SCH ×2 (07:42→14:15)
[2017-10-05] MEDS ORDERED: AMOXICILLIN 875 MG PO SCH (09:00)
[2017-10-05] MEDS ORDERED: EZETIMIBE 10MG TAB PO SCH (09:00)
[2017-10-05] MEDS ORDERED: ROSUVASTATIN CALCIUM 20 MG TAB PO SCH (09:00)
[2017-10-05] MEDS ORDERED: AMLODIPINE BESYLATE 5 MG TAB PO SCH (09:00)
[2017-10-05] MEDS ORDERED: NICOTINE 21 MG/24 HR TDSY TD SCH (09:00)
[2017-10-05] MEDS ORDERED: ASPIRIN 325 MG ECTAB PO SCH (09:00)
[2017-10-05] MEDS ORDERED: CLOPIDOGREL BISULFATE 75 MG TAB PO SCH (09:00)
[2017-10-05] MEDS ORDERED: PANTOprazole SOD 40 MG TAB PO SCH (09:00)
--- NOTE | 2017-10-05 09:59 | DIAGNOSTIC IMAGING REPORT ---
BILATERAL LOWER EXTREMITY VENOUS DOPPLER HISTORY: Follow-up study in a patient with suggested pulmonary emboli PE found COMPARISON STUDY: CTA of the chest 10/04/2017 FINDINGS: There is normal compressibility, flow, and augmentation within the bilateral lower extremity deep venous systems. IMPRESSION: No sonographic evidence of deep venous thrombosis within the right or left lower extremity. Electronically signed by: Robbie Espinoza M.D. 10/05/2017 9:58 AM Dictated Date/Time: 10/05/2017 9:56 AM
--- NOTE | 2017-10-05 11:47 | ECHOCARDIOGRAM REPORT ---
*NOTICE TO RECEIVING REPUBLICAN AGENCY This information is strictly Confidential and protected under [place] law. [place] law prohibits you from making any further disclosure of this information unless further disclosure is expressly permitted by the written consent of the person to whom it pertains or is authorized by law. A general authorization for the release of medical or other information is not sufficient for this purpose. Hospital accepts no responsibility if the information is made available to any other person, INCLUDING THE PATIENT. Interpretation Summary * Name: ELENITA HERRERA Study Date: 10/05/2017 08:08 AM BP: 103/65 mmHg * Patient Location: C.2T\S\E221\S\1 HR: 83 * : 1950 (M/d/yyyy) Gender: Male Height: 66 in * Age: 66 yrs Ethnicity: [place] Weight: 193 lb * Ordering Physician: Jen Faria. * Referring Physician: Self, Referred * Performed By: Gloria Patel RCS * * Reason For Study: Chest Pain * BSA: 2.0 m2 * -- Conclusions -- * 1. Normal left ventricular size and systolic function. EF 55-60%. No regional wall motion abnormalities. No left ventricular hypertrophy. * 2. The left atrium is moderately dilated. * 3. Aortic valve sclerosis mild, without significant aortic valvular stenosis. * 4. There is mild mitral regurgitation. * 5. No prior study available for comparison. Procedure Details * A complete two-dimensional transthoracic echocardiogram was performed (2D, M-mode, Doppler and color flow Doppler). Left Ventricle * Normal left ventricular size and systolic function. EF 55-60%. No regional wall motion abnormalities. No left ventricular hypertrophy. Right Ventricle * The right ventricle is not well visualized. * The right ventricle is grossly normal size. * The right ventricular systolic function is normal. * The right ventricular systolic function is normal as assessed by tricuspid annular plane systolic excursion (TAPSE) (normal >1.5 cm). Atria * The left atrium is moderately dilated. * Right atrium not well visualized. * Right atrial size is normal. * There is no evidence of atrial septal defect, but resolution does not allow assessment for a patent foramen ovale. Mitral Valve * There is mild mitral annular calcification. * There is no mitral valve stenosis. * There is mild mitral regurgitation. Tricuspid Valve * The tricuspid valve is not well visualized. * The tricuspid valve is not well visualized, but is grossly normal. * There is no tricuspid stenosis. * Significant tricuspid regurgitation is absent. Aortic Valve * Aortic valve sclerosis mild, without significant aortic valvular stenosis. * The aortic valve is trileaflet. * No hemodynamically significant valvular aortic stenosis. * No aortic regurgitation is present. Pulmonic Valve * The pulmonary valve is inadequately visualized, but the Doppler data is adequate for interpretation. * There is no pulmonic valvular stenosis. * Trace pulmonic valvular regurgitation. Great Vessels * The aortic root is normal size. Pericardium/Pleural * There is no pericardial effusion. Great Vessels * Mildly dilated IVC with mildly reduced inspiratory collapse. MMode 2D Measurements and Calculations IVSd 1.1 cm IVSs 1.3 cm LVIDd 5.0 cm LVIDs 3.3 cm LVPWd 1.1 cm LVPWs 1.5 cm IVS/LVPW 1.0 FS 33.7 % EDV(Teich) 118.4 ml ESV(Teich) 44.8 ml EF(Teich) 62.2 % EDV(cubed) 125.2 ml ESV(cubed) 36.6 ml EF(cubed) 70.8 % % IVS thick 13.3 % % LVPW thick 38.7 % LV mass(C)d 206.3 grams LV mass(C)dI 104.7 grams/m\S\2 LV mass(C)s 156.7 grams LV mass(C)sI 79.6 grams/m\S\2 SV(Teich) 73.6 ml SI(Teich) 37.4 ml/m\S\2 SV(cubed) 88.6 ml SI(cubed) 45.0 ml/m\S\2 Ao root diam 3.4 cm Ao root area 9.3 cm\S\2 ACS 1.8 cm LA dimension 4.0 cm asc Aorta Diam 2.9 cm LA/Ao 1.2 LVAd ap4 33.5 cm\S\2 LVLd ap4 8.3 cm EDV(MOD-sp4) 112.4 ml EDV(sp4-el) 115.5 ml LVAs ap4 20.1 cm\S\2 LVLs ap4 7.1 cm ESV(MOD-sp4) 49.9 ml ESV(sp4-el) 48.4 ml EF(MOD-sp4) 55.6 % EF(sp4-el) 58.1 % LVAd ap2 27.6 cm\S\2 LVLd ap2 8.5 cm EDV(MOD-sp2) 74.2 ml EDV(sp2-el) 75.9 ml LVAs ap2 16.5 cm\S\2 LVLs ap2 7.2 cm ESV(MOD-sp2) 35.2 ml ESV(sp2-el) 32.1 ml EF(MOD-sp2) 52.6 % EF(sp2-el) 57.7 % LVLd %diff 2.8 % EDV(MOD-bp) 92.7 ml LVLs %diff 1.1 % ESV(MOD-bp) 41.3 ml EF(MOD-bp) 55.4 % SV(MOD-sp4) 62.5 ml SI(MOD-sp4) 31.7 ml/m\S\2 SV(MOD-sp2) 39.0 ml SI(MOD-sp2) 19.8 ml/m\S\2 SV(MOD-bp) 51.4 ml SI(MOD-bp) 26.1 ml/m\S\2 SV(sp4-el) 67.1 ml SI(sp4-el) 34.1 ml/m\S\2 SV(sp2-el) 43.9 ml SI(sp2-el) 22.3 ml/m\S\2 Doppler Measurements and Calculations MV E max steve 113.4 cm/sec MV A max steve 96.1 cm/sec MV E/A 1.2 MV P1/2t max steve 141.6 cm/sec MV P1/2t 97.3 msec MVA(P1/2t) 2.3 cm\S\2 MV dec slope 426.1 cm/sec\S\2 MV dec time 0.33 sec Ao V2 max 126.1 cm/sec Ao max PG 6.4 mmHg Ao max PG (full) 2.8 mmHg LV V1 max PG 3.6 mmHg LV V1 max 95.0 cm/sec PA V2 max 95.8 cm/sec PA max PG 3.7 mmHg PI max steve 163.1 cm/sec PI max PG 10.6 mmHg PI dec slope 224.1 cm/sec\S\2 PI P1/2t 213.1 msec RAP systole 15.0 mmHg
--- NOTE | 2017-10-05 12:14 | Cardiology Consultation ---
Cardiology Consultation Date of Consultation: October 05, 2017. Requesting Physician: Dr. Faria Attending Physician: Dr. Valdes Reason for Consultation: Chest pain Pt evaluation today including: conversation w/ patient, conversation w/ family , physical exam, chart review, lab review, review of studies, review of inpatient medication list, conversation w/ attending History of Present Illness Mr. Garcia is a very pleasant 66-year-old gentleman with a history significant for CAD with LAD PCI, prefer arterial disease status post left femoral stent and left subclavian stent x2, hypertension, dyslipidemia, and extensive smoking history. 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 Smith in the [facility]. He believes that he had left femoral stent placed in April of 2005. Shortly thereafter he developed chest discomfort and had elective cardiac catheterization performed in April of 2005 for which he underwent PCI; he and his family believe that PCI was performed on the LAD. He denies ever having a myocardial infarction. In 2005 he had left subclavian stenosis and underwent stent placement. He continued to have reaccumulation within the left subclavian stent undergoing several balloon angioplasties per his report before being sent to [place] on 2 occasions and had stent placed within his prior stent. He continues to follow with vascular surgery in the [facility] for carotid artery stenosis, which has not yet required intervention. He recalls angina in the past as being a grabbing sensation in his chest, feeling like a knot. He has had several stress tests since PCI, but he believes the most recent was approximately 5 years ago. He presented to the emergency department secondary to chest discomfort. The chest discomfort is a sharp sensation across his entire chest that has been intermittently occurring since 10:00 a.m. yesterday. He was in his garage doing light work. The pain only occurs upon inspiration and if he takes very shallow breaths, the pain did not occur at all. He did not notice a significant difference when laying supine versus sitting forward however a family member thought that perhaps he had more pain laying down. While here, he was placed on ibuprofen and his chest discomfort has completely resolved. For the past week he has had constant left jaw pain and was diagnosed with an abscess by his PCP. He has been on antibiotics for the past 2 days. He denies shortness of breath, syncope, near-syncope, palpitations, edema, melena, hematochezia, hematuria, or other bleeding. He denies nausea, vomiting , abdominal pain, fevers, or stroke-like symptoms. He has lost approximately 23 lb in the past 6 months. He states that his diet has changed secondary to his dental issues. While here he was diagnosed with possible pulmonary embolism and possible pneumonia. He has been placed on heparin drip by the primary service as well as intravenous antibiotic therapy. Review of systems: As above review of systems otherwise negative/unremarkable. Family History No pertinent family history No known premature CAD. Social History Smoking Status: Current Every Day Smoker History of Alcohol Use: No Has smoked anywhere from 2-5 packs per day since the age of 12. He continues to smoke 2 packs of cigarettes per day. He denies alcohol or drugs. He lives at home with his . His and daughter present at the bedside. He also has a son. Two grandchildren also live at home with him. 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 All Other Systems: Reviewed and Negative Allergies Coded Allergies: No Known Allergies (Unverified , 10/04/17) Medications Home medications: 1. Aspirin 325 mg daily 2. Crestor 20 mg daily 3. Zetia 10 mg daily 4. Norvasc 5 mg daily 5. Metoprolol succinate 50 mg q.p.m. 6. Omeprazole 20 mg daily 7. Amoxicillin 875 mg b.i.d. Current Inpatient Medications Medications (Trade) Dose Ordered Sig/Anay Route Start Time Stop Time Status Last Admin Dose Admin Ioversol (Optiray 320) 100 ml UD PRN IV 10/04/17 19:30 10/08/17 19:29 Al Hydrox/Mg Hydrox/Simethicone (Maalox Max Susp) 15 ml Q4H PRN PO 10/04/17 21:45 11/03/17 21:44 Magnesium Hydroxide (Milk Of Magnesia Susp) 30 ml Q12H PRN PO 10/04/17 21:45 11/03/17 21:44 Ondansetron HCl (Zofran Inj) 4 mg Q6H PRN IV 10/04/17 21:45 11/03/17 21:44 Nitroglycerin (Nitrostat Tab) 0.4 mg UD PRN SL 10/04/17 21:45 11/03/17 21:44 Nitroglycerin (Nitroglycerin 2% Oint) 1 inch Q6 EXT 10/04/17 23:00 11/03/17 22:59 10/05/17 06:00 1 INCH Amlodipine Besylate (Norvasc Tab) 5 mg DAILY PO 10/05/17 09:00 11/04/17 08:59 10/05/17 07:43 5 MG Aspirin (Ecotrin Tab) 325 mg DAILY PO 10/05/17 09:00 11/04/17 08:59 10/05/17 07:44 325 MG EZETIMIBE (Zetia Tab) 10 mg DAILY PO 10/05/17 09:00 11/04/17 08:59 10/05/17 07:43 10 MG Metoprolol Succinate (Toprol Xl Tab) 50 mg QPM PO 10/05/17 21:00 11/04/17 20:59 Rosuvastatin Calcium (Crestor Tab) 20 mg DAILY PO 10/05/17 09:00 11/04/17 08:59 10/05/17 07:44 20 MG Pantoprazole Sodium (Protonix Tab) 40 mg QAM PO 10/05/17 09:00 11/04/17 08:59 10/05/17 07:42 40 MG Clopidogrel Bisulfate (plAVix TAB) 75 mg QAM PO 10/05/17 09:00 11/04/17 08:59 10/05/17 07:43 75 MG Albuterol/ Ipratropium (Duoneb) 3 ml QIDR INH 10/05/17 08:00 11/04/17 07:59 10/05/17 11:19 3 ML Heparin Sodium/ Dextrose 500 ml @ 26 mls/hr [id number] IV 10/04/17 22:30 11/03/17 22:29 10/04/17 23:10 26 MLS/HR Miscellaneous (Iv Fluids Completed) 1 ea PRN PRN N/A 10/04/17 23:15 10/04/18 23:14 Levofloxacin 750 mg/Prmx 150 ml @ 100 mls/hr DAILY@2200 IV 10/04/17 23:45 10/11/17 23:44 10/04/17 23:58 100 MLS/HR Nicotine (Nicoderm Cq 21MG Patch) 1 patch QAM TD 10/05/17 09:00 11/04/17 08:59 Miscellaneous (Remove Nicoderm Patch) 1 ea HS N/A 10/05/17 21:00 11/04/17 20:59 Ibuprofen (Motrin Tab) 600 mg TID PO 10/05/17 09:00 11/04/17 08:59 10/05/17 07:42 600 MG Physical Exam Vital Signs Past 12 Hours Date Time Temp Pulse Resp B/P (MAP) Pulse Ox O2 Delivery O2 Flow Rate FiO2 10/05/17 11:19 67 16 94 Room Air 10/05/17 09:00 86 94 10/05/17 08:00 81 10/05/17 08:00 95 Room Air 10/05/17 07:11 74 16 95 Room Air 10/05/17 06:41 37.0 70 17 102/67 (79) 94 Room Air 10/05/17 04:00 94 Room Air 10/05/17 03:30 37.0 83 17 103/65 (78) 94 Room Air 10/05/17 00:00 97 Nasal Cannula 2.0 Gen.: No acute distress. Alert and oriented. HEENT: Anicteric sclera. Neck: No JVD. Bilateral carotid bruits, left greater than right. Normal carotid upstrokes bilaterally. Cardiac: PMI was nondisplaced. No ventricular heave. Regular rate and rhythm. Normal S1-S2. 1/6 early peaking systolic ejection murmur heard best at right upper sternal border. No rubs or gallops. Pulmonary: Crackles at the right base, otherwise clear to auscultation. Abdomen: Soft, nontender, nondistended, with normoactive bowel sounds. No bruits noted. Extremities: 2+ radial pulses bilaterally. 2+ posterior tibialis pulses bilaterally. No edema or cyanosis. No palpable cords. Psychiatric: Affect appears appropriate. Data Laboratory Results: Last 24 Hours Test 10/04/17 18:30 10/04/17 18:38 10/04/17 18:42 10/04/17 23:19 White Blood Count 15.03 K/uL Red Blood Count 5.51 M/uL Hemoglobin 18.9 g/dL Hematocrit 50.4 % Mean Corpuscular Volume 91.5 fL Mean Corpuscular Hemoglobin 34.3 pg Mean Corpuscular Hemoglobin Concent 37.5 g/dl Platelet Count 162 K/uL Mean Platelet Volume 9.5 fL Neutrophils (%) (Auto) 78.2 % Lymphocytes (%) (Auto) 10.0 % Monocytes (%) (Auto) 9.4 % Eosinophils (%) (Auto) 1.7 % Basophils (%) (Auto) 0.4 % Neutrophils # (Auto) 11.75 K/uL Lymphocytes # (Auto) 1.51 K/uL Monocytes # (Auto) 1.42 K/uL Eosinophils # (Auto) 0.25 K/uL Basophils # (Auto) 0.06 K/uL RDW Standard Deviation 44.5 fL RDW Coefficient of Variation 13.3 % Immature Granulocyte % (Auto) 0.3 % Immature Granulocyte # (Auto) 0.04 K/uL Prothrombin Time 10.5 SECONDS Prothromb Time International Ratio 1.0 Activated Partial Thromboplast Time 28.6 SECONDS Partial Thromboplastin Ratio 1.1 Sodium Level 135 mmol/L Potassium Level 4.1 mmol/L Chloride Level 101 mmol/L Carbon Dioxide Level 28 mmol/L Anion Gap 6.0 mmol/L 17.0 mmol/L Blood Urea Nitrogen 16 mg/dl Creatinine 1.15 mg/dl Est Creatinine Clear Calc Drug Dose 63.8 ml/min Estimated GFR () 75.4 Estimated GFR (Non- 65.0 BUN/Creatinine Ratio 13.7 Random Glucose 103 mg/dl Calcium Level 9.3 mg/dl Phosphorus Level 2.8 mg/dl Magnesium Level 2.1 mg/dl Troponin I < 0.015 ng/ml < 0.015 ng/ml Pro-B-Type Natriuretic Peptide 249 pg/ml Procalcitonin < 0.05 ng/ml Bedside Troponin I < 0.030 ng/ml Bedside Hemoglobin 18.7 g/dl Bedside Hematocrit 55 % Bedside Sodium 137 mEq/L Bedside Potassium 4.1 mEq/L Bedside Chloride 99 mEq/L Bedside Total CO2 26 mEq/l Bedside Blood Urea Nitrogen 18 mg/dl Bedside Creatinine 1.1 mg/dl Bedside Glucose (other) 107 mg/dl Bedside Ionized Calcium (Joshua) 1.20 mmol/l Hepatitis C Antibody Screen NEG Test 10/05/17 05:22 10/05/17 10:11 White Blood Count 9.62 K/uL Red Blood Count 4.67 M/uL Hemoglobin 15.5 g/dL Hematocrit 42.5 % Mean Corpuscular Volume 91.0 fL Mean Corpuscular Hemoglobin 33.2 pg Mean Corpuscular Hemoglobin Concent 36.5 g/dl Platelet Count 142 K/uL Mean Platelet Volume 9.3 fL Neutrophils (%) (Auto) 66.5 % Lymphocytes (%) (Auto) 16.7 % Monocytes (%) (Auto) 13.3 % Eosinophils (%) (Auto) 2.6 % Basophils (%) (Auto) 0.7 % Neutrophils # (Auto) 6.39 K/uL Lymphocytes # (Auto) 1.61 K/uL Monocytes # (Auto) 1.28 K/uL Eosinophils # (Auto) 0.25 K/uL Basophils # (Auto) 0.07 K/uL RDW Standard Deviation 44.4 fL RDW Coefficient of Variation 13.4 % Immature Granulocyte % (Auto) 0.2 % Immature Granulocyte # (Auto) 0.02 K/uL Activated Partial Thromboplast Time 51.2 SECONDS Partial Thromboplastin Ratio 2.0 Sodium Level 133 mmol/L Potassium Level 3.8 mmol/L Chloride Level 102 mmol/L Carbon Dioxide Level 24 mmol/L Anion Gap 7.0 mmol/L Blood Urea Nitrogen 14 mg/dl Creatinine 0.98 mg/dl Est Creatinine Clear Calc Drug Dose 74.2 ml/min Estimated GFR () 91.4 Estimated GFR (Non- 78.9 BUN/Creatinine Ratio 14.3 Random Glucose 95 mg/dl Estimated Average Glucose 114 mg/dl Hemoglobin A1c 5.6 % Calcium Level 8.1 mg/dl Total Bilirubin 0.6 mg/dl Aspartate Amino Transf (AST/SGOT) 15 U/L Alanine Aminotransferase (ALT/SGPT) 18 U/L Alkaline Phosphatase 60 U/L Total Protein 6.2 gm/dl Albumin 2.8 gm/dl Globulin 3.4 gm/dl Albumin/Globulin Ratio 0.8 Triglycerides Level 75 mg/dl Cholesterol Level 99 mg/dl HDL Cholesterol 34 mg/dl LDL Cholesterol, Calculated 50 mg/dl VLDL Cholesterol, Calculated 15 mg/dl Cholesterol/HDL Ratio 2.9 Troponin I < 0.015 ng/ml CTA chest 10/04/2017: Single linear filling defect right upper lobe segmental pulmonary artery, possibly representing embolus verses technical finding. Mild/ moderate emphysema. Ground-glass densities lung bases posteriorly, could be mild dependent change versus pneumonia. 5 mm indeterminate pulmonary nodule right lower lobe. Echo 10/05/2017: Normal LV size, wall motion, systolic function. EF 55-60%. Mild MR. Sclerotic aortic valve without significant stenosis. ECGs personally reviewed. ECG 10/04/2017 at 6:23 p.m.: Sinus rhythm [address] elevation with slight AK depression, consider pericarditis. ECG 10/04/2017 at 7:05 p.m.: Sinus rhythm [address] elevation. Slight AK depression, consider pericarditis versus early repolarization. ECG 10/05/2017 6:30 a.m.: Sinus rhythm [address] elevation. Slight TR depression. Consider pericarditis. Telemetry personally reviewed. No arrhythmia. Assessment & Plan ASSESSMENT/PLAN: 1. Acute pericarditis: Symptoms concerning for pericarditis given pleuritic nature and also ECG findings. His symptoms have completely resolved on ibuprofen. Given his prior PCI, recommend 325 mg of aspirin b.i.d. for 1 week and then resume once daily dosing of aspirin. Recommend colchicine 0.6 mg p.o. b.i.d. for 3 months without interruption, to help prevent recurrence. 2. Chest pain: Symptoms are not consistent with ischemic heart disease. Consider pericarditis as above. Cannot rule out pleurisy but given ECG findings , would recommend treating with colchicine as above. No further ischemic evaluation recommended at this time. 3. CAD status post PCI: Continue aspirin therapy chronically indefinitely. 81 mg sufficient from a cardiac perspective however would recommend that he continue to follow with his primary media buyer to outline his care. Continue high-intensity statin therapy. Continue beta-kory. No angina. 4. Prefer arterial disease: Continue to follow with vascular. 5. Hypertension: Blood pressure acceptable. Continue metoprolol succinate and amlodipine. 6. Dyslipidemia: Continue high-intensity statin therapy. Treatment as per his outpatient providers. 7. Tobacco abuse: Recommended that he stop smoking. 8. Disposition: Patient care has been discussed with primary service, Dr. Valdes. follow-up with primary media buyer upon discharge. Thank you for allowing me to participate in the care of your patient. Please call for any other questions or concerns. Sincerely, Jose Zhou M.D.
[2017-10-05] MEDS ORDERED: COLC0.6T54 PO (16:00)
--- NOTE | 2017-10-05 16:05 | Discharge Instructions ---
Discharge Instructions Date of Service October 05, 2017. Admission Reason for Admission: Chest Pain, Hypoxia, Pulmonary Congestion, Discharge Discharge Diagnosis / Problem: Pericarditis Discharge Goals Goal(s): Decrease discomfort, Improve function Activity Recommendations Activity Limitations: resume your previous activity Lifting Limitations: gradually increase as tolerated Exercise/Sports Limitations: as tolerated Shower/Bathe: no limitations . Instructions / Follow-Up Instructions / Follow-Up You have been diagnosed with pericarditis which means inflammation of the sac of the heart (pericardium). This is what caused your chest pain with deep breathing and abnormal results on your EKG. This is treated by taking aspirin and colchicine. Aspirin 325mg: Take 1 tablet by mouth twice daily for one week. After one week take one tablet per day. This will help relieve symptoms of pericarditis. Colchicine 0.6mg: Take 1 tablet by mouth twice daily for 90 days. This will help prevent recurrence of pericarditis. Once you leave the hospital, you should follow-up with your primary care doctor by the end of the week. They will examine you to monitor improvement of this illness. You should also follow-up with your philosophy faculty member as soon as possible. If you develop worsening or new chest pain, shortness of breath, arm pain, back pain, fevers, chills, sweating, or any other symptoms that worry you, you should contact your primary care doctor or the emergency department if you feel it is an emergency. Current Hospital Diet Patient's current hospital diet: AHA Diet (Heart Healthy) Discharge Diet Recommended Diet: AHA Diet (Heart Healthy) Pending Studies Studies pending at discharge: yes List of pending studies: Lyme IgG and IgM Laboratory Results Hemoglobin A1c Test 10/05/17 05:22 Range/Units Estimated Average Glucose 114 mg/dl Hemoglobin A1c 5.6 4.5-5.6 % Lipid Panel Test 10/05/17 05:22 Range/Units Triglycerides Level 75 0-150 mg/dl Cholesterol Level 99 0-200 mg/dl HDL Cholesterol 34 mg/dl Cholesterol/HDL Ratio 2.9 LDL Cholesterol, Calculated 50 mg/dl Medical Emergencies . Who to Call and When: Medical Emergencies: If at any time you feel your situation is an emergency, please call 911 immediately. . Non-Emergent Contact Non-Emergency issues call your: Primary Care Provider . . "Provider Documentation" section prepared by Preston Chapman. .
--- NOTE | 2017-10-05 17:06 | Discharge Summary ---
Discharge Summary Date of Service October 05, 2017. Discharge Summary Admission Date: October 04, 2017 at 22:03 Discharge Date: October 05, 2017 Discharge Disposition: Home Principal Diagnosis: Pericarditis Immunizations: Have You Had Influenza Vaccine: Unknown History of Tetanus Vaccine?: Unknown History of Pneumococcal: Unknown History of Hepatitis B Vaccine: Unknown Medication Reconciliation New Medications: Colchicine (Colchicine) 0.6 Mg Tab 0.6 MG PO BID for 90 Days, #180 TAB Continued Medications: Amlodipine (Norvasc) 5 Mg Tab 5 MG PO DAILY, TAB Amoxicillin (Amoxil) 875 Mg Tab 875 MG PO BID, TAB Aspirin (Aspirin Ec) 325 Mg Tab 325 MG PO DAILY Ezetimibe (Zetia) 10 Mg Tab 10 MG PO DAILY, TAB Metoprolol Succ (Toprol Xl) (Toprol-Xl) 50 Mg Tabcr 50 MG PO QPM, #30 TAB Omeprazole (Prilosec) 20 Mg Capcr 20 MG PO DAILY, CAP Rosuvastatin Calcium (Crestor) 20 Mg Tab 20 MG PO DAILY, TAB Discharge Exam Review of Systems: Constitutional: + weight loss, No fever, No chills Respiratory: + shortness of breath, No cough, No wheezing Cardiovascular: + chest pain, No orthopnea Abdomen: No pain, No nausea, No vomiting, No diarrhea, No constipation Genitourinary - Male: No dysuria, No urinary frequency Hematologic / Lymphatic: + abnormal bleeding/bruising Integumentary: No rash Physical Exam: General Appearance: WD/WN, no apparent distress Eyes: normal inspection ENT: TMs normal Respiratory/Chest: no respiratory distress, + crackles (at bases bilaterally ) Cardiovascular: regular rate, rhythm, no gallop, + systolic murmur (2-3/6, best heart over aortic area), + pertinent finding (no rub) Abdomen / GI: normal bowel sounds, non tender, soft Extremities: no calf tenderness, no pedal edema, + pertinent finding ( Clubbing of the fingers. Hair loss in the lower extremity consistent with PVD. Negative Jose Alberto's sign.) Neurologic/Psychiatric: alert Skin: + pertinent finding (brawny in appearance) Hospital Course 66 year old male with PMHx significant for significant CAD s/p PCI, PVD s/p left femoral stent, h/o left subclavian stenosis s/p stent, HTN, HLD, chronic ongoing tobacco abuse with 100 pack year history presents to the ER with acute onset CP with hypoxia, pleurisy and history of weight loss. In the ER, EKG showed diffuse ST elevations but no heart alert was called after discussion with membership director Dr. Britton. Patient received morphine, NGT, Rocephin and Zithromax. Imaging ruled out dissection, but did show emphysema, pulmonary nodule, and bibasilar ground glass opacities. Recurrent chest pain was treated with morphine and NGT PRN. Repeat EKG was unchanged. Troponins were not elevated , and pt did not have symptoms typical of angina, so we ruled out ACS. Acute pericarditis - Pleuritic chest pain paired relieved with NSAIDs and diffuse ST elevation and OH depression led us to believe he had acute pericarditis. - Ibuprofen given for pleurisy - Cardiology consulted and agreed with diagnosis of pericarditis. Recommended treatment with aspirin and colchicine, which we have ordered: aspirin 325mg BID for 1 week, then return to 325mg once daily. Colchicine 0.6mg BID for 90 days. - Echocardiogram did not show pericardial effusion. EF of 55-60% - Lyme titer ordered, but result not returned yet. Please follow. Coronary Artery and Peripheral Vascular Disease - We continued home meds: aspirin 325mg daily, clopidogrel, metoprolol, amlodipine, ezetimibe, rosuvastatin - Fasting lipid panel was normal. A1C was 5.6% Bibasilar ground glass opacities - We initially considered pneumonia as he presented with leukocytosis. We treated with levofloxacin, but when procalcitonin returned non-elevated, antibiotics were stopped. Pulmonary embolism - CT also showed a right upper lobe segmental artery filling defect that was thought to be PE vs. artifact. With normal lower extremity doppler being normal and absence of abnormal vitals in the setting of lung disease, we felt that PE was highly unlikely. - Believed to be old CT not contributing to current clinical issues. - No anticoagulation necessary at this time. Pulmonary nodule - CT chest: A 5 mm indeterminate pulmonary nodule right lower lobe - Concerning factors: heavy smoker, significant acute weight loss, new PE, no annual screening, and no known history of nodule previously on old CT per family - Would follow-up as an outpatient Dental abscess - Continue amoxicillin previously prescribed by PCP. GERD - PO pantoprazole - Home omeprazole should be 12 hours apart from clopidogrel Tobacco abuse - encouraged cessation - Nicotine patch offered VTE ppx - Heparin drip - SCDs Code: FULL Resident Physician Supervision Note: I interviewed and examined the patient. Discussed with Dr. Chapman and agree with findings and plan as documented in the note. Any exceptions or clarifications are listed here: None Documented By: Michael Valdes feeling better extensive discussions on no pneunonia, highly unlikley PE, probable pericarditis pericarditis -doing better -asa, colchicine -discussed risks/benefits - will stop anticoagulation and revert to dental abscessa bx lung nodule -f/u per fleishner criteria emphysema - d/w pt tobacco abuse - in light of nodule and emphysema, heavily encouraged to quit - he still appears precontemplative Total Time Spent: Greater than 30 minutes This includes examination of the patient, discharge planning, medication reconciliation, and communication with other providers. Discharge Instructions Please refer to the electronic Patient Visit Report (Discharge Instructions) for additional information. Additional Copies To Lianne Reid M.D.
[2017-10-05] MEDS ORDERED: METOPROLOL SUCC 50MG EXT REL TAB PO SCH (21:00)
== END 2017-10-05 17:06 | disposition home or self-care (01) ==
LOC: C.EDB 18:11 → C.2T 22:03 → ENRESERV 22:20 → CANRESERV 22:20 → ENRESERV 22:24
PROVIDERS: ADMIT Internal Medicine; ATTEND Family Medicine
DX: I30.9 Acute pericarditis, unspecified (principal); I25.10 Atherosclerotic heart disease of native coronary artery without angina pectoris; R91.1 Solitary pulmonary nodule; K04.7 Periapical abscess without sinus; K21.9 Gastro-esophageal reflux disease without esophagitis; F17.211 Nicotine dependence, cigarettes, in remission; Z98.61 Coronary angioplasty status; J43.9 Emphysema, unspecified; Z79.82 Long term (current) use of aspirin